=== PATIENT | female | born 1970 | race Caucasian/White ===

== ENCOUNTER 2022-11-29 17:47 | Observation (INO) | payer BC ==
[~2022-11-29 17:47] MED LIST: Iopamidol-370 76% 500 ML MDV (1 ML CHARGE) ONE
[2022-11-29] MEDS ORDERED: Ondansetron PF 4 MG/2 ML Vial ONE (18:48)
[2022-11-29] MEDS ORDERED: Ketorolac Tromethamine 30 MG/ML VIAL ONE (18:48)
[2022-11-29 19:01] LABS: #Basophils 0.1 thou/uL (0.0-0.2); #Eosinphils 0.1 thou/uL (0.0-0.7); #Monocytes 0.8 thou/uL (0.11-0.59); %Basophils 0.3 % (0.0-1.0); %Eosinophils 0.6 % (0.0-10.0); %Lymphocytes 5.8 % (21.0-51.0); %Monocytes 4.8 % (0.0-10.0); %Neutrophils 88.1 % (42.0-75.0); Hematocrit 46.4 % (36.0-47.0); Hemoglobin 15.3 g/dL (12.0-16.0); Mean Corpuscular Hemoglobin 31.9 pg (27.0-31.0); Mean Corpuscular Volume 96.7 fl (78.0-98.0); Mean Platelet Volume 10.5 fL (7.4-10.4); Platelet Count 324 10x3/uL (130-400); White Blood Cell (WBC) Count 15.9 10x3/uL (4.8-10.8)
[2022-11-29 19:25] LABS: ALT (SGPT) 135 U/L (8-55); AST (SGOT) 173 U/L (5-34); Alkaline Phosphatase 234 U/L (40-110); Anion Gap 15 mmol/L (10-20); BUN (Urea Nitrogen) 12 mg/dL (7.0-18.7); Bilirubin, Total 1.1 mg/dL (0.2-1.2); Calc. Creatinine Clearance 0 mL/min (70-130); Calcium 10.1 mg/dL (7.8-10.44); Carbon Dioxide 26 mmol/L (22-29); Chloride 101 mmol/L (98-107); Estimated GFR 90; Globulin 3.6 g/dL (2.4-3.5); Glucose 115 mg/dL (70-105); Lipase 26 U/L (8-78); Potassium 4.4 mmol/L (3.5-5.1); Protein, Total 7.6 g/dL (6.0-8.3); Sodium 138 mmol/L (136-145)
[2022-11-29] MEDS ORDERED: Morphine 4 MG/ML VIAL ONE (20:23)
[2022-11-29] MEDS ORDERED: Ondansetron ODT 4 MG TAB SL PRN (20:45)
[2022-11-29] MEDS ORDERED: Ondansetron PF 4 MG/2 ML Vial IVP PRN (20:45)
[2022-11-29] MEDS ORDERED: Acetaminophen 325 MG TAB PO PRN (20:45)
[2022-11-29 21:46] VITALS: BMI 26.3
[2022-11-29] MEDS: Sodium Chloride 0.9% 1,000 ML IV SCH (21:46)
[2022-11-30] MEDS: Morphine 2 MG/ML VIAL SLOW IVP PRN ×2 (03:28→08:32)
[2022-11-30] MEDS: Sodium Chloride 0.9% 1,000 ML IV SCH (06:28)
[2022-11-30] MEDS ORDERED: traMADol HCl 50 MG TAB PO PRN (06:45)
[2022-11-30 07:35] LABS: #Eosinphils 0.3 thou/uL (0.0-0.7); #Monocytes 0.5 thou/uL (0.11-0.59); #Neutrophils 10.1 thou/uL (1.40-6.50); %Basophils 0.3 % (0.0-1.0); %Eosinophils 2.1 % (0.0-10.0); %Lymphocytes 6.9 % (21.0-51.0); %Monocytes 4.4 % (0.0-10.0); Hematocrit 38.3 % (36.0-47.0); Hemoglobin 12.5 g/dL (12.0-16.0); Mean Corpuscular HGB CONC 32.6 g/dL (32.0-36.0); Mean Corpuscular Hemoglobin 31.7 pg (27.0-31.0); Mean Corpuscular Volume 97.2 fl (78.0-98.0); Mean Platelet Volume 10.6 fL (7.4-10.4); Platelet Count 240 10x3/uL (130-400); Red Blood Cell (RBC) Count 3.94 mill/uL (4.20-5.40); White Blood Cell (WBC) Count 11.7 10x3/uL (4.8-10.8)
[2022-11-30 07:48] LABS: INR-International Normal Ratio 1.1; PTT 41.3 sec (22.9-36.1); Prothrombin Time 14.2 sec (12.0-14.7)
[2022-11-30 07:57] LABS: ALT (SGPT) 87 U/L (8-55); AST (SGOT) 66 U/L (5-34); Albumin 3.3 g/dL (3.5-5.0); Alkaline Phosphatase 188 U/L (40-110); Bilirubin, Direct 0.3 mg/dL (0.1-0.3); Bilirubin, Total 0.6 mg/dL (0.2-1.2); Protein, Total 6.2 g/dL (6.0-8.3)
[2022-11-30] MEDS ORDERED: Polyethylene Glycol 3350 17 GM Packet PO SCH (09:00)
[2022-11-30] MEDS ORDERED: Senokot S 8.6-50 MG TAB PO SCH (09:00)
[2022-11-30] MEDS: traMADol HCl 50 MG TAB PO SCH ×2 (11:50→17:03)
[2022-11-30] MEDS ORDERED: Bupivacaine PF 0.5% 30 ML VIAL ONE (12:28)
[2022-11-30] MEDS ORDERED: EPINEPHrine 1 MG/ML AMP ONE (12:28)
[2022-11-30] MEDS ORDERED: fentaNYL PF 100 MCG/2 ML SYRINGE ONE (12:37)
[2022-11-30] MEDS ORDERED: fentaNYL 50 mcg/mL 1 mL Vial ONE ×2 (12:37→14:33)
[2022-11-30] MEDS ORDERED: Sodium Chloride 0.9% 100 ML ONE (12:47)
[2022-11-30] MEDS ORDERED: CEFAZOLIN 2 GM VIAL ONE (12:47)
[2022-11-30] MEDS ORDERED: PROPOFOL 200 MG/20 ML VIAL ONE (13:01)
[2022-11-30] MEDS ORDERED: Ketorolac Tromethamine 30 MG/ML VIAL ONE (13:01)
[2022-11-30] MEDS ORDERED: Glycopyrrolate 0.2 MG/ML 5 ML SYRINGE ONE (13:01)
[2022-11-30] MEDS ORDERED: Ondansetron PF 4 MG/2 ML Vial ONE (13:01)
[2022-11-30] MEDS ORDERED: Lidocaine 1% PF 5 ML VIAL ONE (13:01)
[2022-11-30] MEDS ORDERED: Dexamethasone 20 MG/5 ML VIAL ONE (13:01)
[2022-11-30] MEDS ORDERED: Rocuronium Bromide 10 MG/ML (10ML VIAL) ONE (13:01)
[2022-11-30] MEDS ORDERED: NEOSTIGMINE 3 MG/3 ML SYR 3 MG/3 ML SYRINGE ONE (13:01)
[2022-11-30] MEDS ORDERED: Ondansetron HCl/PF 4 MG/2 ML Vial IVP PRN (14:08)
[2022-11-30] MEDS ORDERED: Promethazine HCl 25 MG/ML VIAL IM PRN (14:08)
[2022-11-30 19:07] VITALS: BP 120/76; TEMP 99.1
== END 2022-11-30 18:02 | disposition home or self-care (01) ==
LOC: ERS 17:47 → T4-A 20:29
PROVIDERS: ADMIT Surgery; ATTEND Surgery
PROC: 0FT44ZZ Resection of Gallbladder, Percutaneous Endoscopic Approach (ICD-10-PCS; principal; 2022-11-30)
DX: K80.00 Calculus of gallbladder with acute cholecystitis without obstruction (principal); E66.01 Morbid (severe) obesity due to excess calories; Z68.26 Body mass index [BMI] 26.0-26.9, adult; Z98.84 Bariatric surgery status; Z90.710 Acquired absence of both cervix and uterus
CPT/HCPCS: 36415; 74177; 76705; 80053; 80076; 83690; 85025; 85610; 85730; 86850; 86900; 86901; 88304; 96374; 96375; 96376; C1889; G0378; J0171; J1100; J1885; J2270; J2272; J2405; J2704; J3010; J3490; J7050; Q9967; S0020